=== PATIENT | male | born 1995 | race Caucasian/White ===

== ENCOUNTER → 2018-10-14 | Outpatient (REF) | payer OTHER ==
[~2018-10-14] MED LIST: BENZ200C70 PO; MUCI600T31 PO; ZITHTAB PO
== END ==
LOC: M SFHCLERA 20:55
PROVIDERS: ATTEND Nurse Practitioner Family
DX: J02.9 Acute pharyngitis, unspecified (principal)

== ENCOUNTER 2018-10-16 22:07 | Emergency (ER) | payer OTHER ==
[~2018-10-16] VITALS: Ht 182.9 cm; Wt 64.5 kg
[2018-10-16 23:48] VITALS: BP 140/87
[2018-10-16] MEDS ORDERED: BENZ200C70 PO (23:48)
[2018-10-16] MEDS ORDERED: ZITHTAB PO (23:48)
[2018-10-16] MEDS ORDERED: MUCI600T31 PO (23:48)
[2018-10-17] MEDS ORDERED: BENZONATATE 100 MG CAP PO ONE
[2018-10-17] MEDS ORDERED: AZITHROMYCIN 250 MG TAB PO ONE
--- NOTE | 2018-10-17 07:19 | REP ---
Clinical: Cough . Comparison: None . Technique: PA and lateral. Findings: The mediastinum and cardiac silhouette are normal. The lung go are clear and without acute consolidation, effusion, or pneumothorax. The skeletal structures are intact and normal. Impression: 1. No acute cardiopulmonary process. Electronically Signed by Dipak Smith MD 10/17/2018 07:11 A
== END 2018-10-16 23:56 | disposition home or self-care (01) ==
LOC: M ED 22:07
DX: J06.9 Acute upper respiratory infection, unspecified (principal); J01.90 Acute sinusitis, unspecified; Z72.0 Tobacco use; Z88.0 Allergy status to penicillin